=== PATIENT | female | born 1955 | race Caucasian/White ===

== ENCOUNTER 2024-04-15 12:34 | Outpatient (CLI) | payer OTHER | END 2024-04-15 12:37 | disposition home or self-care (01) | LOC: NUCLEAR 12:34 | PROVIDERS: ATTEND Internal Medicine Hematology & Oncology | DX: M85.89 Other specified disorders of bone density and structure, multiple sites (principal); M81.0 Age-related osteoporosis without current pathological fracture ==

== ENCOUNTER 2024-10-30 08:03 | Outpatient (CLI) | payer OTHER | END 2024-10-30 08:11 | disposition home or self-care (01) | LOC: RAD 08:03 | PROVIDERS: ATTEND Internal Medicine Hematology & Oncology | DX: M17.0 Bilateral primary osteoarthritis of knee (principal); M16.0 Bilateral primary osteoarthritis of hip ==

== ENCOUNTER → 2024-11-13 | Emergency (ER) | payer OTHER ==
[~2024-11-13] VITALS: Ht 170.2 cm; Wt 86.2 kg
[~2024-11-13] MED LIST: ATORVASTATIN CA10 MG; CETIRIZINE HCL 5 MG/5 ML ML PO ONE; CETIRIZINE HCL 5MG/5ML BLIST.PACK PO ONE; COZAAR25 MG; GUAIFENESIN/DEXTROMETHORPHAN 100MG/10ML BLIST.PACK PO ONE; KETOROLAC TROMETHAMINE 60 MG VIAL IM ONE; LOPERAMIDE HCL 2 MG CAPSULE PO ONE
== END | disposition left against medical advice (07) ==
LOC: ER 17:56
DX: R05.9 Cough, unspecified (principal); I10 Essential (primary) hypertension; E11.9 Type 2 diabetes mellitus without complications

== ENCOUNTER 2025-04-28 12:00 | Inpatient (IN) | payer OTHER ==
[~2025-04-28] VITALS: Ht 170.2 cm; Wt 589.7 kg
[~2025-04-28 12:00] MED LIST changes: -CETIRIZINE HCL 5 MG/5 ML ML PO ONE; -CETIRIZINE HCL 5MG/5ML BLIST.PACK PO ONE; -GUAIFENESIN/DEXTROMETHORPHAN 100MG/10ML BLIST.PACK PO ONE; -KETOROLAC TROMETHAMINE 60 MG VIAL IM ONE; -LOPERAMIDE HCL 2 MG CAPSULE PO ONE
[2025-04-28 13:45] VITALS: BP 138/84
[2025-05-04] MEDS ORDERED: ENALAPRILAT DIHYDRATE 1.25 MG/ML VIAL IV PRN (14:45)
[2025-05-04] MEDS ORDERED: CEFAZOLIN SODIUM 1,000 MG VIAL IV ONE (17:30)
[2025-05-04] MEDS ORDERED: TRANEXAMIC ACID 100MG/1ML (1000MG) AMPUL IV ONE (17:30)
[2025-05-04] MEDS ORDERED: VANCOMYCIN HCL 1,000 MG VIAL IR ONE (18:30)
[2025-05-04] MEDS ORDERED: METOCLOPRAMIDE HCL 5 MG/ML VIAL IV ONE (19:00)
[2025-05-04] MEDS ORDERED: MORPHINE SULFATE 4 MG/ML CARTRIDGE IV PRN (19:30)
[2025-05-04] MEDS ORDERED: ONDANSETRON HCL 2 MG/ML VIAL IV PRN (19:30)
[2025-05-04] MEDS ORDERED: OxyCODONE HCL 5 MG TABLET (ROXICODONE) PO PRN (19:30)
[2025-05-04] MEDS ORDERED: SODIUM CHLORIDE 0.45 % 1,000 ML IV SCH (19:30)
[2025-05-04 22:28] VITALS: BP 122/63; O2SAT 100
[2025-05-05] MEDS ORDERED: ACETAMINOPHEN 500 MG GEL..CAP PO SCH
[2025-05-05] MEDS ORDERED: GABAPENTIN 300 MG CAPSULE PO SCH (01:00)
[2025-05-05] MEDS ORDERED: CEFAZOLIN SODIUM 1,000 MG VIAL IV SCH (01:00)
[2025-05-05 06:59] LABS: BASO % 0.1 % (0.1-1.2); EOS # 0.01 (0.04-0.54); EOS % 0.1 % (0.7-7.0); LYMPH # 1.49 (1.18-3.74); LYMPH % 13.2 % (19.3-53.1); MEAN PLATELET VOLUME 11.20 fl (9.4-12.4); MONO # 0.65 (0.24-0.82); MONO % 5.8 % (4.7-12.5); NEUT # 9.09 (1.56-6.13); NEUT % 80.4 % (34.0-71.1); RED CELL DISTRIBUTION WIDTH 13.4 % (11.6-14.4)
[2025-05-05] MEDS ORDERED: DUI500 PO (08:56)
[2025-05-05] MEDS ORDERED: ELIQUIS2.5 MG PO (08:56)
[2025-05-05] MEDS ORDERED: PERCOCET 5-3251 EACH PO (08:56)
[2025-05-05] MEDS ORDERED: APIXABAN 2.5 MG TABLET PO SCH (09:00)
[2025-05-05] MEDS ORDERED: SENNOSIDES 1 TAB TABLET PO SCH (09:00)
[2025-05-05] MEDS ORDERED: ATORVASTATIN CALCIUM 10 MG TABLET PO SCH (09:00)
[2025-05-05] MEDS ORDERED: LOSARTAN POTASSIUM 25 MG TABLET PO SCH (09:00)
[2025-05-05 10:08] VITALS: BP 117/76; O2SAT 98
[2025-05-05 13:36] LABS: COVID-19 AG NEGATIVE (NEGATIVE)
[2025-05-05 16:32] VITALS: BP 122/71; O2SAT 99
[2025-05-06] MEDS ORDERED: IRON FUM,PS/FOLIC ACID/VITC/B3 1 CAP CAPSULE PO SCH (09:00)
== END 2025-05-05 19:08 | DRG 470 ==
LOC: O/R 05-04 05:52 → SURG 05-04 05:52 → SURH 05-04 10:15 → SURG 05-04 20:09 → OB/GYN 05-04 20:51 → SURG 05-04 21:19
PROVIDERS: ADMIT Orthopaedic Surgery; ATTEND Orthopaedic Surgery
PROC: 0MBL0ZZ Excision of Right Hip Bursa and Ligament, Open Approach (ICD-10-PCS; 2025-05-04)
PROC: 0QU60KZ Supplement Right Upper Femur with Nonautologous Tissue Substitute, Open Approach (ICD-10-PCS; 2025-05-04)
PROC: 0QU60JZ Supplement Right Upper Femur with Synthetic Substitute, Open Approach (ICD-10-PCS; 2025-05-04)
PROC: 0SR902Z Replacement of Right Hip Joint with Metal on Polyethylene Synthetic Substitute, Open Approach (ICD-10-PCS; principal; 2025-05-04 10:15)
DX: M16.11 Unilateral primary osteoarthritis, right hip (principal); I10 Essential (primary) hypertension; E11.9 Type 2 diabetes mellitus without complications; M81.0 Age-related osteoporosis without current pathological fracture; E78.00 Pure hypercholesterolemia, unspecified; Z96.641 Presence of right artificial hip joint

== ENCOUNTER → 2025-05-20 | Emergency (ER) | payer OTHER ==
[~2025-05-20] VITALS: Ht 170.2 cm; Wt 83.9 kg
[~2025-05-20] MED LIST changes: +DUI500 PO; +ELIQUIS2.5 MG PO; +PERCOCET 5-3251 EACH PO
[2025-05-20 21:23] VITALS: BP 108/64; O2SAT 99
== END | disposition left against medical advice (07) ==
LOC: ER 21:12
DX: Z53.21 Procedure and treatment not carried out due to patient leaving prior to being seen by health care provider (principal)